=== PATIENT | female | born 1960 | race Caucasian/White ===

== ENCOUNTER 2020-10-29 17:22 | Emergency (ER) | payer BC ==
[~2020-10-29] VITALS: Ht 160 cm; Wt 77.4 kg
--- NOTE | 2020-10-29 17:42 | NUR ---
PT ATTEMPTED TO CUT WRIST WITH LACERATIONS TO BILAT WRISTS. CMS AND RADIAL PULSES INTACT. DR. DOVE TO BEDSIDE. FOR EVALUATION. PT ATTACHED TO MONITORS. VSS. SAFETY PRECAUTIONS IN PLACES. SITTER AT BEDSIDE. BELONGINGS COLLECTED BY PTS DAUGHTER.
--- NOTE | 2020-10-29 18:20 | NUR ---
TASK RN: CISCO ROSE SENT FOR ANALYSIS
[2020-10-29] MEDS ORDERED: DIPH,PERTUSS(ACELL),TET VAC/PF 0.5 ML IM-VACC ONE ×2 (18:30→21:04)
[2020-10-29] MEDS ORDERED: LIDOCAINE-MPF 1%, 5ML INFIL ONE (18:30)
[2020-10-29 18:49] LABS: AMPHETAMINE SCREEN, URINE Positive (Negative); BARBITURATE SCREEN, URINE Negative (Negative); BENZODIAZEPINE SCREEN, URINE Negative (Negative); CANNABINOID SCREEN, URINE Negative (Negative); COCAINE SCREEN, URINE Negative (Negative); METHADONE SCREEN, URINE Negative (Negative); OPIATE SCREEN, URINE Negative (Negative)
[2020-10-29 19:13] LABS: BASOPHILS % (AUTO) 0 % (0-1); EOSINOPHILS % (AUTO) 0 % (1-7); LYMPHOCYTES % (AUTO) 12 % (22-44); MEAN CORPUSCULAR HEMOGLOBIN 33.6 pg (27.0-34.8); MEAN CORPUSCULAR HGB CONC 33.4 g/dL (32.4-35.8); MEAN PLATELET VOLUME 7.9 fL (7.4-10.4); MONOCYTES % (AUTO) 3 % (2-9); NEUTROPHILS % (AUTO) 84 % (42-75); PLATELET COUNT 358 x10^3/uL (130-400); RED CELL DISTRIBUTION WIDTH 13.9 % (9.6-15.2)
[2020-10-29 19:23] LABS: ALBUMIN 3.7 g/dL (3.4-5.0); ANION GAP 8 mmol/L (5-15); CALCIUM 8.4 mg/dL (8.5-10.1); CHLORIDE 112 mmol/L (98-107); CREATININE 0.97 mg/dL (0.55-1.02)
--- NOTE | 2020-10-29 19:24 | NUR ---
received report from tati DUAGN. Patient resting in bed. at bedside, belongs secured, patient sitter outside room, room secured.
[2020-10-29 19:35] LABS: SALICYLATE LEVEL < 1.7 mg/dL (2.8-20.0)
--- NOTE | 2020-10-29 19:44 | NUR ---
bilateral wrist cleaned with NS and wrapped with sterile gauze. Provider aware that patient is ready to be sutured
--- NOTE | 2020-10-29 20:04 | NUR ---
Patient resting in bed. at bedside, belongs secured, patient sitter outside room, room secured.
[2020-10-29] MEDS ORDERED: SUMATRIPTAN 25 MG TABLET PO PRN (21:00)
--- NOTE | 2020-10-29 21:00 | NUR ---
U REVIEWING PT FOR POSSIBLE PLACEMENT.
[2020-10-29] MEDS ORDERED: SUMATRIPTAN 25 MG TABLET ONE ×2 (21:04→22:45)
--- NOTE | 2020-10-29 21:10 | NUR ---
Patient resting in bed.patient sitter outside room, room secured. brought patient ice water per request and medication for migraine per request
[2020-10-29 21:42] VITALS: BP 146/87
--- NOTE | 2020-10-29 21:59 | NUR ---
Patient resting in bed. patient sitter outside room, room secured. no new current needs at this time per patient statement
--- NOTE | 2020-10-29 22:34 | NUR ---
ACCEPTED BY [facility] IN [place] ONCE UNDER THE LEGAL LIMIT. PT'S PRIMARY RN, JOE, MADE AWARE.
[2020-10-29] MEDS ORDERED: SUMATRIPTAN 50 MG TABLET PO PRN (23:00)
--- NOTE | 2020-10-29 23:02 | NUR ---
Patient resting in bed. patient sitter outside room, room secured. no new current needs at this time per patient statement
[2020-10-30] MEDS ORDERED: NICOTINE 21 MG/24 HR PATCH.TD24 ONE (00:03)
--- NOTE | 2020-10-30 00:15 | NUR ---
report called to Rosemarie DUGAN and patient going to room [id number]
--- NOTE | 2020-10-30 00:15 | NUR ---
Patient resting in bed. patient sitter outside room, room secured. no new current needs at this time per patient statement
[2020-10-30] MEDS ORDERED: NICOTINE 21 MG/24 HR PATCH.TD24 TD ONE (00:30)
[2020-10-30] MEDS ORDERED: TRAM50TA2 PO (11:58)
[2020-10-30] MEDS ORDERED: TOPI25TA8 PO (11:58)
[2020-10-30] MEDS ORDERED: AMLO-150 PO (11:58)
[2020-10-30] MEDS ORDERED: SUMA100T4 PO (11:58)
[2020-10-30] MEDS ORDERED: ALPR0.5T7 PO (11:58)
[2020-10-30] MEDS ORDERED: ESTR1TAB15 PO (11:58)
[2020-10-30] MEDS ORDERED: EZET10TA70 PO (11:58)
== END 2020-10-30 03:34 ==
LOC: ED 17:52
DX: T14.91XA Suicide attempt, initial encounter (principal); F33.3 Major depressive disorder, recurrent, severe with psychotic symptoms; F10.120 Alcohol abuse with intoxication, uncomplicated; S61.512A Laceration without foreign body of left wrist, initial encounter; S61.511A Laceration without foreign body of right wrist, initial encounter; Z20.822 Contact with and (suspected) exposure to COVID-19; X83.8XXA Intentional self-harm by other specified means, initial encounter; Y93.89 Activity, other specified; Y92.89 Other specified places as the place of occurrence of the external cause; Y99.8 Other external cause status
CPT/HCPCS: 12004; 36415; 80048; 80299; 80307; 80320; 80329; 82040; 85025; 87635; 90471; 90715; G0480

== ENCOUNTER 2020-10-29 21:45 | Inpatient (IN) | payer BC ==
[~2020-10-29] VITALS: Ht 160 cm; Wt 78.2 kg
[2020-10-29] MEDS ORDERED: TRAZODONE 50MG TABLET PO PRN (23:30)
[2020-10-29] MEDS ORDERED: LORazepam 1MG TABLET PO PRN (23:30)
[2020-10-29] MEDS ORDERED: ONDANSETRON ODT 4 MG PO PRN (23:30)
[2020-10-29] MEDS ORDERED: HYDROcodone/APAP 5/325 TABLET PO PRN (23:30)
[2020-10-29] MEDS ORDERED: BISACODYL 10 MG SUPP PR PRN (23:30)
[2020-10-29] MEDS ORDERED: POLYETHYLENE GLYCOL 17 GM PACKET PO PRN (23:30)
[2020-10-29] MEDS ORDERED: DOCUSATE 100 MG CAPSULE PO PRN (23:30)
[2020-10-30 00:52] VITALS: BP 141/96
[2020-10-30] MEDS ORDERED: PLEASE ENTER HEIGHT AND WEIGHT MC SCH (01:00)
[2020-10-30 02:03] LABS: MICROSCOPIC INDICATED
[2020-10-30 05:42] LABS: CHOL/HDL RATIO 2.7; FREE T4 (FREE THYROXINE) 1.13 ng/dL (0.76-1.46); LDL/HDL RATIO 1.4 (0.5-3.0)
[2020-10-30 07:08] VITALS: BP 143/84
[2020-10-30] MEDS: ACETAMINOPHEN 325 MG TABLET PO PRN (07:44)
[2020-10-30] MEDS ORDERED: THIAMINE 100MG TABLET PO SCH (09:00)
[2020-10-30] MEDS ORDERED: FOLIC ACID 1 MG TABLET PO SCH (09:00)
[2020-10-30] MEDS: NICOTINE 14MG/24 HR PATCH.TD24 TD SCH (09:10)
[2020-10-30] MEDS ORDERED: AMLO-150 PO (11:58)
[2020-10-30] MEDS ORDERED: EZET10TA70 PO (11:58)
[2020-10-30] MEDS ORDERED: ESTR1TAB15 PO (11:58)
[2020-10-30] MEDS ORDERED: TOPI25TA8 PO (11:58)
[2020-10-30] MEDS ORDERED: SUMA100T4 PO (11:58)
[2020-10-30] MEDS ORDERED: ALPR0.5T7 PO (11:58)
[2020-10-30] MEDS ORDERED: TRAM50TA2 PO (11:58)
[2020-10-30] MEDS: DULOXETINE 30 MG CAPSULE.DR PO SCH (12:01)
[2020-10-30 14:25] LABS: ALBUMIN 3.1 g/dL (3.4-5.0)
[2020-10-30 14:28] LABS: BILIRUBIN, DIRECT 0.1 mg/dL (0.1-0.2); BILIRUBIN,INDIRECT 0.3 mg/dL (0.0-2.0); BILIRUBIN,TOTAL 0.4 mg/dL (0.2-1.0); TOTAL PROTEIN 7.2 g/dL (6.4-8.2)
[2020-10-30 17:59] VITALS: BP 126/84
[2020-10-30] MEDS ORDERED: OMNIPAQUE 350 MG/ML, 100ML BOTTLE ONE (20:22)
[2020-10-30] MEDS: TOPIRAMATE 25 MG TABLET PO SCH (20:52)
[2020-10-30] MEDS: AMOXICILLIN/CLAV 875-125MG TABLET PO SCH (20:52)
[2020-10-31 03:00] VITALS: BP 137/92
[2020-10-31] MEDS: SUMATRIPTAN 100 MG TABLET PO PRN ×2 (06:22→20:35)
[2020-10-31 07:14] VITALS: BP 154/106
[2020-10-31] MEDS: TOPIRAMATE 25 MG TABLET PO SCH ×2 (09:39→20:35)
[2020-10-31] MEDS: NICOTINE 14MG/24 HR PATCH.TD24 TD SCH (09:39)
[2020-10-31] MEDS: MULTIVITAMIN 1 TABLET PO SCH (09:39)
[2020-10-31] MEDS: AMOXICILLIN/CLAV 875-125MG TABLET PO SCH ×2 (09:39→20:35)
[2020-10-31] MEDS: ESTRADIOL 1 MG TABLET PO SCH (09:39)
[2020-10-31] MEDS: AMLODIPINE 5 MG TABLET PO SCH (09:39)
[2020-10-31] MEDS: EZETIMIBE 10 MG TABLET PO SCH (09:39)
[2020-10-31] MEDS: DULOXETINE 30 MG CAPSULE.DR PO SCH (10:02)
[2020-10-31 19:19] VITALS: BP 124/84
[2020-10-31 19:38] LABS: MICROSCOPIC NOT IND
[2020-11-01] MEDS ORDERED: DIPHENHYDRAMINE 25 MG CAPSULE PO PRN (02:00)
[2020-11-01 07:27] VITALS: BP 127/87
[2020-11-01] MEDS: EZETIMIBE 10 MG TABLET PO SCH (09:04)
[2020-11-01] MEDS: AMOXICILLIN/CLAV 875-125MG TABLET PO SCH ×2 (09:04→20:10)
[2020-11-01] MEDS: MULTIVITAMIN 1 TABLET PO SCH (09:04)
[2020-11-01] MEDS: DULOXETINE 30 MG CAPSULE.DR PO SCH (09:04)
[2020-11-01] MEDS: ESTRADIOL 1 MG TABLET PO SCH (09:04)
[2020-11-01] MEDS: TOPIRAMATE 25 MG TABLET PO SCH ×2 (09:04→20:10)
[2020-11-01] MEDS: AMLODIPINE 5 MG TABLET PO SCH (09:04)
[2020-11-01] MEDS: NICOTINE 14MG/24 HR PATCH.TD24 TD SCH (09:05)
[2020-11-01] MEDS ORDERED: AMOX1TAB12 PO (09:31)
[2020-11-01] MEDS: SUMATRIPTAN 100 MG TABLET PO PRN ×2 (11:07→22:09)
[2020-11-01 18:35] VITALS: BP 132/88
[2020-11-01] MEDS: ACETAMINOPHEN 325 MG TABLET PO PRN (19:49)
[2020-11-02] MEDS: ACETAMINOPHEN 325 MG TABLET PO PRN ×2 (02:04→07:51)
[2020-11-02 07:41] VITALS: BP 141/94
[2020-11-02] MEDS ORDERED: MULT-482 PO (08:35)
[2020-11-02] MEDS ORDERED: NICO-486 TD (08:35)
[2020-11-02] MEDS ORDERED: DULO30CA2 PO (08:35)
[2020-11-02] MEDS: TOPIRAMATE 25 MG TABLET PO SCH (08:39)
[2020-11-02] MEDS: NICOTINE 14MG/24 HR PATCH.TD24 TD SCH (08:39)
[2020-11-02] MEDS: ESTRADIOL 1 MG TABLET PO SCH (08:39)
[2020-11-02] MEDS: AMOXICILLIN/CLAV 875-125MG TABLET PO SCH (08:39)
[2020-11-02] MEDS: MULTIVITAMIN 1 TABLET PO SCH (08:39)
[2020-11-02] MEDS: EZETIMIBE 10 MG TABLET PO SCH (08:39)
[2020-11-02] MEDS: AMLODIPINE 5 MG TABLET PO SCH (08:39)
[2020-11-02] MEDS: DULOXETINE 30 MG CAPSULE.DR PO SCH (08:39)
[2020-11-02] MEDS: SUMATRIPTAN 100 MG TABLET PO PRN (10:09)
== END 2020-11-02 12:30 | disposition home or self-care (01) | DRG 885 ==
LOC: 3E 10-30 00:24
PROVIDERS: ADMIT Psychiatry & Neurology Psychosomatic Medicine; ATTEND Psychiatry & Neurology Psychosomatic Medicine
DX: F33.2 Major depressive disorder, recurrent severe without psychotic features (principal); R45.851 Suicidal ideations; E78.5 Hyperlipidemia, unspecified; G43.909 Migraine, unspecified, not intractable, without status migrainosus; K59.00 Constipation, unspecified; D75.89 Other specified diseases of blood and blood-forming organs; I10 Essential (primary) hypertension; F17.290 Nicotine dependence, other tobacco product, uncomplicated; F41.9 Anxiety disorder, unspecified; Z79.899 Other long term (current) drug therapy; Z86.16 Personal history of COVID-19; Z80.0 Family history of malignant neoplasm of digestive organs; Z91.5 Personal history of self-harm
CPT/HCPCS: 36415; 71045; 80061; 80076; 81001; 81003; 82140; 82607; 84439; 84443; 93005; Q9967; Q0163